=== PATIENT | female | born 1990 | race Two or more races ===

== ENCOUNTER 2020-11-13 10:00 | Emergency (ER) | payer OTHER ==
[2020-11-14 14:08] LABS: SARS-CoV-2 NAA Not Detected (Not Detected)
== END 2020-11-13 11:54 | disposition home or self-care (01) ==
LOC: JVIRT 10:00
DX: Z20.822 Contact with and (suspected) exposure to COVID-19 (principal)
CPT/HCPCS: C9803; Q3014-GT; U0003; U0005